=== PATIENT | female | born 1935 | race Two or more races ===

== ENCOUNTER → 2017-06-15 | Outpatient (CLI) | payer MEDICARE, MEDICAID ==
[2017-06-15 09:24] LABS: Basophils # (auto) 0 uL; Basophils % (auto) 0.5 % (0.0-2.0); CONDITION Y; Eosinophils # (auto) 0.1 uL; Eosinophils % (auto) 1.6 % (0.0-7.0); Hematocrit 36.6 % (36.0-46.0); Hemoglobin 12.4 g/dL (12.2-16.2); Lymphocytes # (auto) 1.2 uL; Lymphocytes % (auto) 24.6 % (10.0-50.0); Mean Corpuscular Hemoglobin 31.6 pg (28.0-32.0); Mean Platelet Volume 8.3 fL (7.4-10.4); Monocytes # (auto) 0.3 uL; Monocytes % (auto) 6.6 % (0.0-12.0); Neutrophils # (auto) 3.4 uL; Neutrophils % (auto) 66.7 % (37.0-80.0); Platelet Count (auto) 269 10^3/uL (140-450); Red Cell Distribution Width 14.8 % (11.6-16.0)
[2017-06-15 09:33] LABS: Urine Bilirubin Negative (Negative); Urine Blood Negative /uL (Negative); Urine Color Yellow (Yellow); Urine Glucose Normal (Normal); Urine Ketone Negative (Negative); Urine Nitrite Negative (Negative); Urine RBC <1 /hpf (0 - 4); Urine Squamous Epithelial Cell FEW /hpf (<5); Urine Urobilinogen Normal (Negative)
[2017-06-15 09:51] LABS: Albumin 3.4 g/dL (3.4-5.0); Bilirubin, Total 0.4 mg/dL (0.2-1.0); Calcium 8.3 mg/dL (8.5-10.1); Potassium 3.9 mmol/L (3.5-5.1); Total Protein 6.8 g/dL (6.4-8.2)
== END | disposition home or self-care (01) ==
LOC: LAB 08:18
PROVIDERS: ATTEND Internal Medicine
DX: Z00.00 Encounter for general adult medical examination without abnormal findings (principal); I10 Essential (primary) hypertension; E78.2 Mixed hyperlipidemia; D64.9 Anemia, unspecified; E55.9 Vitamin D deficiency, unspecified
CPT/HCPCS: 36415; 80053; 80061; 81001; 82043; 82306; 82607; 83036; 84443; 85025; 86592

== ENCOUNTER 2019-02-19 20:27 | Emergency (ER) | payer OTHER, MEDICAID ==
[2019-02-19 20:35] VITALS: BP 159/80
[2019-02-19 22:02] LABS: Basophils # (auto) 0 uL; Basophils % (auto) 0.6 % (0.0-2.0); Eosinophils # (auto) 0.3 uL; Eosinophils % (auto) 4.3 % (0.0-7.0); Hematocrit 40.2 % (36.0-46.0); Hemoglobin 13.1 g/dL (12.2-16.2); Lymphocytes # (auto) 0.5 uL; Lymphocytes % (auto) 7.4 % (10.0-50.0); Mean Corpuscular Hgb Conc. 32.7 g/dL (32.0-36.0); Mean Corpuscular Volume 94.8 fL (80.0-100.0); Monocytes # (auto) 0.4 uL; Neutrophils % (auto) 82.7 % (37.0-80.0); Platelet Count (auto) 171 10^3/uL (140-450); Red Blood Cells 4.24 10^6/uL (4.0-5.20); Red Cell Distribution Width 14.2 % (11.8-14.3); White Blood Cell 7.3 10^3/uL (4.4-10.8)
[2019-02-19 22:20] LABS: Chloride 96 mmol/L (98-107); Potassium 3.9 mmol/L (3.5-5.1); Sodium 128 mmol/L (136-145)
[2019-02-19 22:29] LABS: Alanine Aminotransferase 17 U/L (13-56); Albumin 3.6 g/dL (3.4-5.0); Alkaline Phosphatase 67 U/L (45-117); Anion Gap 10 (5-15); Aspartate Aminotransferase 14 U/L (15-37); BUN/Creatinine Ratio 18.3; Bilirubin, Total 0.3 mg/dL (0.2-1.0); Blood Urea Nitrogen 11 mg/dL (7-18); Calcium 8.7 mg/dL (8.5-10.1); Carbon Dioxide 22 mmol/L (21-32); GFR African American 122 mL/min; GFR Non-African American 101 mL/min; Glucose 179 mg/dL (74-106); Total Protein 7.3 g/dL (6.4-8.2)
== END 2019-02-20 05:17 | disposition left against medical advice (07) ==
LOC: ER 20:33
DX: R53.1 Weakness (principal); R11.0 Nausea; R05 Cough; Z53.21 Procedure and treatment not carried out due to patient leaving prior to being seen by health care provider
CPT/HCPCS: 36415; 71045; 80053; 83735; 84484; 85025; 93005

== ENCOUNTER → 2020-11-25 | Outpatient (CLI) | payer OTHER, MEDICAID ==
[2020-11-25 10:12] LABS: Basophils # (auto) 0.1 10 ^3/uL (0-0.2); Basophils % (auto) 1.4 % (0.0-2.0); Eosinophils # (auto) 0.1 10 ^3/uL (0-0.8); Eosinophils % (auto) 1.5 % (0.0-7.0); Hematocrit 38.3 % (36.0-46.0); Hemoglobin 12.7 g/dL (12.2-16.2); Lymphocytes # (auto) 1.5 10 ^3/uL (0.4-5.4); Lymphocytes % (auto) 30.8 % (10.0-50.0); Mean Corpuscular Hemoglobin 30.6 pg (28.0-32.0); Mean Corpuscular Hgb Conc. 33.2 g/dL (32.0-36.0); Mean Corpuscular Volume 92.1 fL (80.0-100.0); Monocytes # (auto) 0.3 10 ^3/uL (0-1.3); Monocytes % (auto) 6.8 % (0.0-12.0); Neutrophils # (auto) 2.9 10 ^3/uL (1.6-8.6); Neutrophils % (auto) 59.5 % (37.0-80.0); Nucleated Red Blood Cells % 0.1 %; Platelet Count (auto) 236 10^3/uL (140-450); Red Blood Cells 4.16 10^6/uL (4.0-5.20); Red Cell Distribution Width 15.2 % (11.8-14.3); White Blood Cell 4.9 10^3/uL (4.4-10.8)
[2020-11-25 10:48] LABS: Albumin 3.4 g/dL (3.4-5.0); Bilirubin, Total 0.4 mg/dL (0.2-1.0); Calcium 8.7 mg/dL (8.5-10.1); Total Protein 7.4 g/dL (6.4-8.2)
== END | disposition home or self-care (01) ==
LOC: LAB 09:37
PROVIDERS: ATTEND Physician Assistant
DX: I10 Essential (primary) hypertension (principal); E11.8 Type 2 diabetes mellitus with unspecified complications; E55.9 Vitamin D deficiency, unspecified; G30.1 Alzheimer's disease with late onset
CPT/HCPCS: 36415; 80053; 80061; 82043; 82306; 83036; 85025

== ENCOUNTER 2021-10-15 11:10 | Emergency (ER) | payer OTHER, MEDICAID ==
[~2021-10-15] VITALS: Ht 147.3 cm; Wt 40.4 kg
[2021-10-15 11:10] VITALS: BP 164/60
[2021-10-15] MEDS ORDERED: PROM1SOL4 PO ×2 (12:28→12:37)
[2021-10-15] MEDS ORDERED: LEVO500T31 PO ×2 (12:28→12:37)
[2021-10-15] MEDS ORDERED: cefTRIAXone SOD 1,000 MG VL IM ONE (12:30)
== END 2021-10-15 12:47 | disposition home or self-care (01) ==
LOC: ER 11:10
DX: J20.9 Acute bronchitis, unspecified (principal); J40 Bronchitis, not specified as acute or chronic; E11.9 Type 2 diabetes mellitus without complications; I10 Essential (primary) hypertension; Z90.710 Acquired absence of both cervix and uterus
CPT/HCPCS: 71045; 96372; 99283; J0696

== ENCOUNTER 2021-11-28 11:15 | Inpatient (IN) | payer OTHER, MEDICAID ==
[~2021-11-28] VITALS: Ht 147.3 cm; Wt 71.0 kg
[~2021-11-28 11:15] MED LIST: LEVO500T31 PO; PROM1SOL4 PO
[2021-11-28 14:10] LABS: Basophils # (auto) 0 10 ^3/uL (0-0.2); Basophils % (auto) 0.2 % (0.0-2.0); Eosinophils # (auto) 0 10 ^3/uL (0-0.8); Eosinophils % (auto) 0.3 % (0.0-7.0); Hematocrit 35.2 % (36.0-46.0); Hemoglobin 11.3 g/dL (12.2-16.2); Lymphocytes # (auto) 0.6 10 ^3/uL (0.4-5.4); Lymphocytes % (auto) 3.8 % (10.0-50.0); Mean Corpuscular Hgb Conc. 32.2 g/dL (32.0-36.0); Monocytes # (auto) 0.7 10 ^3/uL (0-1.3); Monocytes % (auto) 4.4 % (0.0-12.0); Neutrophils # (auto) 13.7 10 ^3/uL (1.6-8.6); Neutrophils % (auto) 91.3 % (37.0-80.0); Red Blood Cells 4.04 10^6/uL (4.0-5.20)
[2021-11-28] MEDS ORDERED: AZITHROMYCIN 500MG/ 250ML 250 ML IV ONE (14:15)
[2021-11-28] MEDS ORDERED: cefTRIAXone 1GM/50ML D5W 50 ML IV ONE (14:15)
[2021-11-28 14:24] LABS: Albumin 2.5 g/dL (3.4-5.0); Calcium 9.1 mg/dL (8.5-10.1); Potassium 4.2 mmol/L (3.5-5.1)
[2021-11-28 14:27] LABS: BUN/Creatinine Ratio 35.3; Bilirubin, Total 0.5 mg/dL (0.2-1.0)
[2021-11-28] MEDS ORDERED: CLINDAMYCIN 600 MG/4 ML VL IM ONE (14:30)
[2021-11-28] MEDS ORDERED: CLINDAMYCIN 300MG IV 50 ML IV ONE (18:30)
[2021-11-28] MEDS ORDERED: ACETAMINOPHEN 500 MG TAB PO PRN (19:30)
[2021-11-28] MEDS: SODIUM CHLORIDE 0.9% 1,000 ML IV SCH (19:30)
[2021-11-28] MEDS ORDERED: NITROGLYCERIN 0.4 MG SL TAB SL PRN (19:30)
[2021-11-28] MEDS ORDERED: HYDROcodone-ACET 5/325MG TAB PO PRN (19:30)
[2021-11-28] MEDS ORDERED: MORPHINE SULFATE INJECTION 2 MG/ML SYRG IV PRN ×2 (19:30)
[2021-11-28] MEDS ORDERED: ONDANSETRON HCL 4 MG/2 ML VIAL IV PRN (19:30)
[2021-11-28] MEDS ORDERED: DEXTROSE (50%) 50ML SYRG IV PRN (20:00)
[2021-11-28 20:44] LABS: Urine Bacteria NONE SEEN /hpf (None Seen); Urine Blood TRACE /uL (Negative); Urine Specific Gravity 1.018 (1.001-1.035); Urine WBC <1 /hpf (0 - 5)
[2021-11-28] MEDS: InsuLIN REG 1unit/0.01ml Soln (100units/ml) SC SCH (22:13)
[2021-11-28] MEDS: ACCU-CHEK COMFORT CURVE STRIP VI SCH (22:13)
[2021-11-29 04:00] VITALS: BP 169/74
[2021-11-29] MEDS: CLINDAMYCIN 300MG IV 50 ML IV SCH ×3 (05:31→21:39)
[2021-11-29] MEDS: SODIUM CHLORIDE 0.9% 1,000 ML IV SCH ×2 (05:31→15:23)
[2021-11-29] MEDS: ACCU-CHEK COMFORT CURVE STRIP VI SCH ×3 (05:40→21:40)
[2021-11-29] MEDS: InsuLIN REG 1unit/0.01ml Soln (100units/ml) SC SCH ×3 (05:40→21:40)
[2021-11-29 05:45] LABS: Basophils # (auto) 0 10 ^3/uL (0-0.2); Basophils % (auto) 0.2 % (0.0-2.0); Eosinophils # (auto) 0 10 ^3/uL (0-0.8); Eosinophils % (auto) 0.3 % (0.0-7.0); Hematocrit 32.7 % (36.0-46.0); Hemoglobin 10.8 g/dL (12.2-16.2); Lymphocytes # (auto) 0.5 10 ^3/uL (0.4-5.4); Lymphocytes % (auto) 3.5 % (10.0-50.0); Mean Corpuscular Hemoglobin 28.5 pg (28.0-32.0); Mean Corpuscular Volume 86.6 fL (80.0-100.0); Monocytes # (auto) 0.6 10 ^3/uL (0-1.3); Monocytes % (auto) 4.5 % (0.0-12.0); Neutrophils # (auto) 11.9 10 ^3/uL (1.6-8.6); Neutrophils % (auto) 91.5 % (37.0-80.0); Red Blood Cells 3.78 10^6/uL (4.0-5.20); Red Cell Distribution Width 16.5 % (11.8-14.3)
[2021-11-29 05:59] LABS: Calcium 8.3 mg/dL (8.5-10.1); Potassium 3.5 mmol/L (3.5-5.1)
[2021-11-29 06:02] LABS: Albumin 2.3 g/dL (3.4-5.0)
[2021-11-29 06:04] LABS: Bilirubin, Total 0.5 mg/dL (0.2-1.0); Total Protein 5.6 g/dL (6.4-8.2)
[2021-11-29 09:00] VITALS: BP 163/70
[2021-11-29] MEDS: cefTRIAXone 1GM/50ML D5W 50 ML IV SCH (10:00)
[2021-11-29 17:00] VITALS: BP 148/72
[2021-11-29 22:00] VITALS: BP 147/74
[2021-11-30] MEDS: SODIUM CHLORIDE 0.9% 1,000 ML IV SCH ×2 (01:30→11:30)
[2021-11-30 05:00] VITALS: BP 142/71
[2021-11-30] MEDS: CLINDAMYCIN 300MG IV 50 ML IV SCH ×3 (06:28→21:28)
[2021-11-30] MEDS: ACCU-CHEK COMFORT CURVE STRIP VI SCH ×4 (06:34→21:28)
[2021-11-30] MEDS: InsuLIN REG 1unit/0.01ml Soln (100units/ml) SC SCH ×4 (06:35→21:28)
[2021-11-30 09:00] VITALS: BP 112/61
[2021-11-30] MEDS: cefTRIAXone 1GM/50ML D5W 50 ML IV SCH (09:36)
[2021-11-30 13:00] VITALS: BP 121/61
[2021-11-30 17:00] VITALS: BP 135/87
[2021-11-30 20:00] VITALS: BP 194/85
[2021-11-30] MEDS ORDERED: hydrALAZINE HCL 20 MG/ML VL ONE (22:57)
[2021-11-30] MEDS: hydrALAZINE HCL 20 MG/ML VL IV PRN (23:01)
[2021-12-01 05:00] VITALS: BP 149/70
[2021-12-01] MEDS: CLINDAMYCIN 300MG IV 50 ML IV SCH ×3 (05:34→22:54)
[2021-12-01 05:46] LABS: Basophils # (auto) 0 10 ^3/uL (0-0.2); Basophils % (auto) 0.2 % (0.0-2.0); Eosinophils # (auto) 0 10 ^3/uL (0-0.8); Hematocrit 28.6 % (36.0-46.0); Hemoglobin 9.4 g/dL (12.2-16.2); Lymphocytes # (auto) 0.6 10 ^3/uL (0.4-5.4); Lymphocytes % (auto) 3.1 % (10.0-50.0); Mean Corpuscular Hemoglobin 28.2 pg (28.0-32.0); Mean Corpuscular Hgb Conc. 32.9 g/dL (32.0-36.0); Mean Corpuscular Volume 85.5 fL (80.0-100.0); Monocytes # (auto) 0.7 10 ^3/uL (0-1.3); Monocytes % (auto) 3.9 % (0.0-12.0); Neutrophils # (auto) 16.6 10 ^3/uL (1.6-8.6); Neutrophils % (auto) 92.8 % (37.0-80.0); Nucleated Red Blood Cells % 0.1 %; Red Blood Cells 3.34 10^6/uL (4.0-5.20); Red Cell Distribution Width 16.6 % (11.8-14.3); White Blood Cell 17.9 10^3/uL (4.4-10.8)
[2021-12-01 05:54] LABS: BUN/Creatinine Ratio 42.1; Calcium 7.4 mg/dL (8.5-10.1); Magnesium 1.7 mg/dL (1.6-2.6)
[2021-12-01 06:37] LABS: Potassium 2.4 mmol/L (3.5-5.1)
[2021-12-01] MEDS: InsuLIN REG 1unit/0.01ml Soln (100units/ml) SC SCH ×4 (06:54→22:55)
[2021-12-01] MEDS: ACCU-CHEK COMFORT CURVE STRIP VI SCH ×4 (06:54→22:53)
[2021-12-01] MEDS ORDERED: POTASSIUM CHL 20 Meq TABLET PO ONE ×2 (08:00→10:00)
[2021-12-01] MEDS: cefTRIAXone 1GM/50ML D5W 50 ML IV SCH (08:35)
[2021-12-01 09:00] VITALS: BP 133/62
[2021-12-01] MEDS ORDERED: MAGNESIUM OXIDE 400 MG TAB PO ONE (11:15)
[2021-12-01] MEDS ORDERED: POTASSIUM CHLORIDE 20 MEQ, LIDOCAINE 1% (LOCAL ANESTH.) 2 ML in SODIUM CHL 0.9% 100 ML IV ONE (11:15)
[2021-12-01] MEDS ORDERED: POTASSIUM CHL 20MEQ/50ML 50 ML IV ONE (12:45)
[2021-12-01] MEDS ORDERED: CYANOCOBALAMIN (B-12) 1000 MCG/1 ML VIAL SUBCUT ONE (18:30)
[2021-12-02] MEDS: ACCU-CHEK COMFORT CURVE STRIP VI SCH ×4 (06:03→22:08)
[2021-12-02] MEDS: CLINDAMYCIN 300MG IV 50 ML IV SCH ×2 (06:03→14:00)
[2021-12-02] MEDS: InsuLIN REG 1unit/0.01ml Soln (100units/ml) SC SCH ×4 (06:04→22:07)
[2021-12-02 06:37] LABS: BUN/Creatinine Ratio 26.9; Calcium 7.3 mg/dL (8.5-10.1); Magnesium 1.3 mg/dL (1.6-2.6); Potassium 3.6 mmol/L (3.5-5.1)
[2021-12-02 06:49] LABS: Basophils # (auto) 0 10 ^3/uL (0-0.2); Basophils % (auto) 0.1 % (0.0-2.0); Eosinophils # (auto) 0.1 10 ^3/uL (0-0.8); Eosinophils % (auto) 0.6 % (0.0-7.0); Hematocrit 26.3 % (36.0-46.0); Hemoglobin 8.8 g/dL (12.2-16.2); Lymphocytes # (auto) 0.8 10 ^3/uL (0.4-5.4); Lymphocytes % (auto) 5.4 % (10.0-50.0); Mean Corpuscular Hemoglobin 28.6 pg (28.0-32.0); Mean Corpuscular Hgb Conc. 33.4 g/dL (32.0-36.0); Mean Corpuscular Volume 85.5 fL (80.0-100.0); Monocytes # (auto) 0.6 10 ^3/uL (0-1.3); Monocytes % (auto) 4.4 % (0.0-12.0); Neutrophils # (auto) 12.8 10 ^3/uL (1.6-8.6); Neutrophils % (auto) 89.5 % (37.0-80.0); Red Blood Cells 3.07 10^6/uL (4.0-5.20); Red Cell Distribution Width 16.3 % (11.8-14.3); White Blood Cell 14.3 10^3/uL (4.4-10.8)
[2021-12-02 09:00] VITALS: BP 145/74
[2021-12-02] MEDS: cefTRIAXone 1GM/50ML D5W 50 ML IV SCH (09:00)
[2021-12-02] MEDS: CYANOCOBALAMIN (B-12) 1000 MCG/1 ML VIAL IM SCH (09:49)
[2021-12-02 13:00] VITALS: BP 147/70
[2021-12-02 17:00] VITALS: BP 140/72
[2021-12-02 22:00] VITALS: BP 157/80
[2021-12-02] MEDS: LINEZOLID 600MG TABLET PO SCH (22:05)
[2021-12-03 05:30] VITALS: BP 150/86
[2021-12-03 06:05] LABS: Basophils # (auto) 0 10 ^3/uL (0-0.2); Basophils % (auto) 0.1 % (0.0-2.0); Eosinophils # (auto) 0.1 10 ^3/uL (0-0.8); Eosinophils % (auto) 0.5 % (0.0-7.0); Hematocrit 29.2 % (36.0-46.0); Hemoglobin 9.7 g/dL (12.2-16.2); Lymphocytes # (auto) 0.6 10 ^3/uL (0.4-5.4); Lymphocytes % (auto) 4.3 % (10.0-50.0); Mean Corpuscular Hemoglobin 28.3 pg (28.0-32.0); Mean Corpuscular Hgb Conc. 33.2 g/dL (32.0-36.0); Mean Corpuscular Volume 85.4 fL (80.0-100.0); Monocytes # (auto) 0.5 10 ^3/uL (0-1.3); Monocytes % (auto) 3.7 % (0.0-12.0); Neutrophils # (auto) 12.9 10 ^3/uL (1.6-8.6); Neutrophils % (auto) 91.4 % (37.0-80.0); Red Blood Cells 3.42 10^6/uL (4.0-5.20); Red Cell Distribution Width 16.5 % (11.8-14.3); White Blood Cell 14.1 10^3/uL (4.4-10.8)
[2021-12-03 06:40] LABS: BUN/Creatinine Ratio 19.2; Calcium 7.7 mg/dL (8.5-10.1)
[2021-12-03] MEDS: InsuLIN REG 1unit/0.01ml Soln (100units/ml) SC SCH ×4 (07:03→22:25)
[2021-12-03] MEDS: ACCU-CHEK COMFORT CURVE STRIP VI SCH ×4 (07:04→22:25)
[2021-12-03 08:25] VITALS: BP 163/86
[2021-12-03] MEDS: hydrALAZINE HCL 20 MG/ML VL IV PRN (08:32)
[2021-12-03] MEDS: LINEZOLID 600MG TABLET PO SCH ×2 (10:00→22:24)
[2021-12-03] MEDS: CYANOCOBALAMIN (B-12) 1000 MCG/1 ML VIAL IM SCH (10:00)
[2021-12-03 13:05] VITALS: BP 104/56
[2021-12-03] MEDS ORDERED: ceFAZolin 1GM VL ONE (13:28)
[2021-12-03] MEDS ORDERED: ceFAZolin 1GM/50ML 100 ML IV ONE (13:29)
[2021-12-03] MEDS ORDERED: ROCURONIUM 10MG/ML 10ML VIAL IV ONE (13:31)
[2021-12-03] MEDS ORDERED: fentaNYL CITRATE 100 MCG/2 ML VL ONE (13:31)
[2021-12-03] MEDS ORDERED: MIDAZOLAM HCL 2MG/2ML 2ml VIAL (1mg/ml) ONE (13:31)
[2021-12-03] MEDS ORDERED: ONDANSETRON HCL 4 MG/2 ML VIAL ONE (13:38)
[2021-12-03] MEDS ORDERED: LIDOCAINE 2% (LOCAL ANESTH.) PF 5ml SDV ONE (13:38)
[2021-12-03] MEDS ORDERED: HYDROmorphone HCL 2 MG/ML VL IV PRN (15:15)
[2021-12-03] MEDS ORDERED: ONDANSETRON HCL 4 MG/2 ML VIAL IV PRN (15:15)
[2021-12-03 17:45] VITALS: BP 137/64
[2021-12-03 18:10] LABS: INR 1.25 (0.9-1.15); Partial Thromboplastin Time 31.6 sec (23.6-33.0)
[2021-12-03 20:00] VITALS: BP 106/43
[2021-12-04 03:00] VITALS: BP 116/48
[2021-12-04] MEDS: ACCU-CHEK COMFORT CURVE STRIP VI SCH ×4 (06:57→22:31)
[2021-12-04] MEDS: InsuLIN REG 1unit/0.01ml Soln (100units/ml) SC SCH ×4 (06:57→22:30)
[2021-12-04 08:23] LABS: Basophils # (auto) 0 10 ^3/uL (0-0.2); Basophils % (auto) 0.3 % (0.0-2.0); Eosinophils # (auto) 0 10 ^3/uL (0-0.8); Eosinophils % (auto) 0.3 % (0.0-7.0); Hematocrit 27.8 % (36.0-46.0); Hemoglobin 9.3 g/dL (12.2-16.2); Lymphocytes # (auto) 0.9 10 ^3/uL (0.4-5.4); Mean Corpuscular Hemoglobin 28.5 pg (28.0-32.0); Mean Corpuscular Hgb Conc. 33.3 g/dL (32.0-36.0); Mean Corpuscular Volume 85.4 fL (80.0-100.0); Monocytes # (auto) 0.6 10 ^3/uL (0-1.3); Monocytes % (auto) 4.5 % (0.0-12.0); Neutrophils # (auto) 11.6 10 ^3/uL (1.6-8.6); Neutrophils % (auto) 87.9 % (37.0-80.0); Potassium 3.3 mmol/L (3.5-5.1); Red Blood Cells 3.26 10^6/uL (4.0-5.20); Red Cell Distribution Width 16.5 % (11.8-14.3); White Blood Cell 13.2 10^3/uL (4.4-10.8)
[2021-12-04 08:40] LABS: BUN/Creatinine Ratio 26.1; Calcium 7.8 mg/dL (8.5-10.1)
[2021-12-04] MEDS: LINEZOLID 600MG TABLET PO SCH ×2 (09:39→22:28)
[2021-12-04] MEDS: CYANOCOBALAMIN (B-12) 1000 MCG/1 ML VIAL IM SCH (09:39)
[2021-12-04 10:20] VITALS: BP 154/66
[2021-12-04] MEDS ORDERED: POTASSIUM EFFERVESENT TAB 25 MEQ PO ONE (12:00)
[2021-12-04] MEDS ORDERED: CEFTRIAXONE SODIUM 2 GM in D5W 5% 50 ML IV ONE (12:15)
[2021-12-04] MEDS ORDERED: cefTRIAXone 1GM/50ML D5W 50 ML IV ONE (13:00)
[2021-12-04 14:41] VITALS: BP 152/69
[2021-12-04 17:18] VITALS: BP 149/74
[2021-12-04 20:00] VITALS: BP 140/68
[2021-12-04 22:00] VITALS: BP 140/68
[2021-12-05] VITALS (7 sets, daily range): BP systolic 117–165; BP diastolic 58–84
[2021-12-05 05:34] LABS: Basophils # (auto) 0 10 ^3/uL (0-0.2); Eosinophils # (auto) 0 10 ^3/uL (0-0.8); Eosinophils % (auto) 0.5 % (0.0-7.0); Hemoglobin 8.8 g/dL (12.2-16.2); Lymphocytes # (auto) 0.6 10 ^3/uL (0.4-5.4); Mean Corpuscular Hemoglobin 28.6 pg (28.0-32.0); Mean Corpuscular Hgb Conc. 33.7 g/dL (32.0-36.0); Mean Corpuscular Volume 85.1 fL (80.0-100.0); Monocytes # (auto) 0.5 10 ^3/uL (0-1.3); Monocytes % (auto) 5.7 % (0.0-12.0); Neutrophils # (auto) 7.9 10 ^3/uL (1.6-8.6); Neutrophils % (auto) 86.8 % (37.0-80.0); Nucleated Red Blood Cells % 0.1 %; Red Blood Cells 3.06 10^6/uL (4.0-5.20); Red Cell Distribution Width 16.5 % (11.8-14.3); White Blood Cell 9.1 10^3/uL (4.4-10.8)
[2021-12-05 05:51] LABS: Potassium 3.7 mmol/L (3.5-5.1)
[2021-12-05 05:55] LABS: BUN/Creatinine Ratio 17.1; Magnesium 2.6 mg/dL (1.6-2.6)
[2021-12-05] MEDS: ACCU-CHEK COMFORT CURVE STRIP VI SCH ×4 (07:00→23:41)
[2021-12-05] MEDS: InsuLIN REG 1unit/0.01ml Soln (100units/ml) SC SCH ×4 (07:00→23:48)
[2021-12-05] MEDS: cefTRIAXone 1GM/50ML D5W 50 ML IV SCH (09:00)
[2021-12-05] MEDS: CYANOCOBALAMIN (B-12) 1000 MCG/1 ML VIAL IM SCH (10:00)
[2021-12-05] MEDS: LINEZOLID 600MG TABLET PO SCH ×2 (10:00→23:40)
[2021-12-05] MEDS ORDERED: POTASSIUM PHOSPHATE 26.4 MEQ in SODIUM CHL 0.9% 100 ML IV ONE (12:45)
[2021-12-06 05:00] VITALS: BP 162/63
[2021-12-06] MEDS: ACCU-CHEK COMFORT CURVE STRIP VI SCH ×4 (07:00→22:43)
[2021-12-06] MEDS: InsuLIN REG 1unit/0.01ml Soln (100units/ml) SC SCH ×4 (07:00→22:43)
[2021-12-06 09:00] VITALS: BP 181/76
[2021-12-06] MEDS: cefTRIAXone 1GM/50ML D5W 50 ML IV SCH (09:11)
[2021-12-06] MEDS: CYANOCOBALAMIN (B-12) 1000 MCG/1 ML VIAL IM SCH (09:12)
[2021-12-06] MEDS: LINEZOLID 600MG TABLET PO SCH ×2 (09:12→22:42)
[2021-12-06] MEDS: hydrALAZINE HCL 20 MG/ML VL IV PRN (09:37)
[2021-12-06 10:44] VITALS: BP 149/59
[2021-12-06] MEDS ORDERED: METOPROLOL TARTRATE 25 MG TAB PO ONE (12:45)
[2021-12-06 14:40] VITALS: BP 146/78
[2021-12-06 16:40] VITALS: BP 128/67
[2021-12-06] MEDS: METOPROLOL TARTRATE 25 MG TAB PO SCH (22:42)
[2021-12-07] MEDS: InsuLIN REG 1unit/0.01ml Soln (100units/ml) SC SCH ×2 (06:23→12:53)
[2021-12-07] MEDS: ACCU-CHEK COMFORT CURVE STRIP VI SCH ×2 (06:24→12:52)
[2021-12-07 09:00] VITALS: BP 147/76
[2021-12-07] MEDS: CYANOCOBALAMIN (B-12) 1000 MCG/1 ML VIAL IM SCH (09:25)
[2021-12-07] MEDS: cefTRIAXone 1GM/50ML D5W 50 ML IV SCH (09:25)
[2021-12-07] MEDS: LINEZOLID 600MG TABLET PO SCH (09:26)
[2021-12-07] MEDS: METOPROLOL TARTRATE 25 MG TAB PO SCH (09:26)
[2021-12-07] MEDS ORDERED: LEVO500T31 PO (11:20)
[2021-12-07] MEDS ORDERED: CYAN1TAB14 PO (11:20)
[2021-12-07] MEDS ORDERED: LINE1TAB5 PO (11:20)
[2021-12-07 13:00] VITALS: BP 141/66
[2021-12-07 13:51] VITALS: BP 130/77
== END 2021-12-07 17:12 | disposition home health service (06) | DRG 853 ==
LOC: ER 11:15 → TELE 19:25 → TELE-WESTW 11-29 03:09
PROVIDERS: ADMIT Nurse Practitioner Acute Care; ATTEND Internal Medicine
PROC: 0J9700Z Drainage of Back Subcutaneous Tissue and Fascia with Drainage Device, Open Approach (ICD-10-PCS; 2021-12-03)
PROC: 0JB70ZZ Excision of Back Subcutaneous Tissue and Fascia, Open Approach (ICD-10-PCS; principal; 2021-12-03 13:33)
DX: A41.9 Sepsis, unspecified organism (principal); E43 Unspecified severe protein-calorie malnutrition; L02.212 Cutaneous abscess of back [any part, except buttock and flank]; L03.312 Cellulitis of back [any part except buttock and flank]; L89.150 Pressure ulcer of sacral region, unstageable; I10 Essential (primary) hypertension; Z20.822 Contact with and (suspected) exposure to COVID-19; E88.09 Other disorders of plasma-protein metabolism, not elsewhere classified; F03.90 Unspecified dementia, unspecified severity, without behavioral disturbance, psychotic disturbance, mood disturbance, and anxiety; E11.40 Type 2 diabetes mellitus with diabetic neuropathy, unspecified; D64.9 Anemia, unspecified; S31.000A Unspecified open wound of lower back and pelvis without penetration into retroperitoneum, initial encounter; E11.21 Type 2 diabetes mellitus with diabetic nephropathy; Z68.32 Body mass index [BMI] 32.0-32.9, adult; Z90.710 Acquired absence of both cervix and uterus; Z98.51 Tubal ligation status; Y93.89 Activity, other specified; Y92.89 Other specified places as the place of occurrence of the external cause; Y99.8 Other external cause status
CPT/HCPCS: 36415; 71045; 74176; 80048; 80053; 81001; 82607; 82962; 83605; 83735; 84100; 84132; 84443; 85025; 85610; 85730; 87040; 87070; 87075; 87077; 87186; 87205; 87426; 96365; 96367; A4565; G0378; J0690; J0696; J1815; J2001; J2250; J2405; J3490; J7060

== ENCOUNTER 2021-12-15 21:20 | Emergency (ER) | payer OTHER, MEDICAID ==
[~2021-12-15] VITALS: Ht 147.3 cm; Wt 40.4 kg
[~2021-12-15 21:20] MED LIST changes: +CYAN1TAB14 PO; +LINE1TAB5 PO
[2021-12-15] MEDS ORDERED: ONDANSETRON HCL 4 MG/2 ML VIAL IV ONE (22:00)
[2021-12-15] MEDS ORDERED: IOHEXOL 350 MG/ML 100ML IJ ONE (22:00)
[2021-12-15] MEDS ORDERED: HYDROmorphone HCL 2 MG/ML VL IV ONE (22:00)
[2021-12-15] MEDS ORDERED: SODIUM CHLORIDE 0.9% 500 ML IV ONE (22:00)
[2021-12-16 00:36] LABS: Basophils # (auto) 0 10 ^3/uL (0-0.2); Basophils % (auto) 0.3 % (0.0-2.0); Eosinophils # (auto) 0 10 ^3/uL (0-0.8); Eosinophils % (auto) 0.1 % (0.0-7.0); Hematocrit 26.4 % (36.0-46.0); Hemoglobin 8.6 g/dL (12.2-16.2); Lymphocytes # (auto) 0.8 10 ^3/uL (0.4-5.4); Mean Corpuscular Hemoglobin 28.1 pg (28.0-32.0); Mean Corpuscular Hgb Conc. 32.7 g/dL (32.0-36.0); Mean Corpuscular Volume 85.8 fL (80.0-100.0); Monocytes # (auto) 0.1 10 ^3/uL (0-1.3); Neutrophils # (auto) 10.7 10 ^3/uL (1.6-8.6); Neutrophils % (auto) 91.6 % (37.0-80.0); Red Blood Cells 3.08 10^6/uL (4.0-5.20); Red Cell Distribution Width 16.7 % (11.8-14.3); White Blood Cell 11.7 10^3/uL (4.4-10.8)
[2021-12-16] MEDS ORDERED: VANCOMYCIN 1GM/250ML 250 ML IV ONE (00:45)
[2021-12-16] MEDS ORDERED: PIPERACILLIN-TAZOB 3.375GM 100 ML IV ONE (00:45)
[2021-12-16 01:23] LABS: Albumin 2.6 g/dL (3.4-5.0); BUN/Creatinine Ratio 26.9
[2021-12-16 01:26] LABS: Bilirubin, Total 0.3 mg/dL (0.2-1.0); Potassium 2.9 mmol/L (3.5-5.1); Total Protein 6.4 g/dL (6.4-8.2)
[2021-12-16] MEDS ORDERED: ONDANSETRON HCL 4 MG/2 ML VIAL IV PRN (02:45)
[2021-12-16] MEDS ORDERED: ACETAMINOPHEN 325 MG TAB PO PRN (02:45)
[2021-12-16] MEDS ORDERED: HYDROcodone-ACET 5/325MG TAB PO PRN (02:45)
[2021-12-16] MEDS ORDERED: DEXTROSE (50%) 50ML SYRG IV PRN (02:45)
[2021-12-16] MEDS: POTASSIUM CHL 10MEQ/50ML 50 ML IV SCH ×4 (03:40→10:19)
[2021-12-16] MEDS: ACCU-CHEK COMFORT CURVE STRIP VI SCH ×4 (06:31→22:27)
[2021-12-16] MEDS: InsuLIN REG 1unit/0.01ml Soln (100units/ml) SC SCH ×4 (06:34→22:00)
[2021-12-16] MEDS ORDERED: hydrALAZINE HCL 20 MG/ML VL IV PRN (06:45)
[2021-12-16] MEDS ORDERED: ENOXAPARIN SOD 40 MG/0.4 ML SYRINGE SC SCH (10:00)
[2021-12-16] MEDS ORDERED: POTASSIUM CHL 10MEQ/50ML 50 ML IV ONE (10:05)
[2021-12-16 10:12] LABS: Albumin 2.5 g/dL (3.4-5.0); Calcium 8.1 mg/dL (8.5-10.1)
[2021-12-16] MEDS: LINEZOLID 600MG/300ML 300 ML IV SCH ×2 (10:20→22:28)
[2021-12-16] MEDS: LOSARTAN POTASSIUM 25 MG TAB PO SCH (10:20)
[2021-12-16] MEDS: ENOXAPARIN SOD 30 MG/0.3 ML SYRINGE SC SCH (10:20)
[2021-12-16 10:23] LABS: Lactic Acid w/Reflex 4.2 mmol/L (0.4-2.0)
[2021-12-16 10:27] LABS: BUN/Creatinine Ratio 23.3; Bilirubin, Total 0.2 mg/dL (0.2-1.0); Total Protein 5.9 g/dL (6.4-8.2)
[2021-12-16 19:15] LABS: Urine Bacteria NONE SEEN /hpf (None Seen); Urine Blood Negative /uL (Negative); Urine Specific Gravity 1.024 (1.001-1.035); Urine WBC 2 /hpf (0 - 5)
[2021-12-17 05:00] VITALS: BP 156/63
[2021-12-17] MEDS: InsuLIN REG 1unit/0.01ml Soln (100units/ml) SC SCH ×2 (06:15→12:02)
[2021-12-17] MEDS: ACCU-CHEK COMFORT CURVE STRIP VI SCH ×2 (06:16→12:02)
[2021-12-17 08:54] LABS: Calcium 7.6 mg/dL (8.5-10.1); Magnesium 2.2 mg/dL (1.6-2.6)
[2021-12-17 08:58] LABS: BUN/Creatinine Ratio 19.2
[2021-12-17 09:00] LABS: Basophils # (auto) 0 10 ^3/uL (0-0.2); Basophils % (auto) 0.6 % (0.0-2.0); Eosinophils # (auto) 0.1 10 ^3/uL (0-0.8); Eosinophils % (auto) 1.3 % (0.0-7.0); Hematocrit 29.8 % (36.0-46.0); Hemoglobin 9.6 g/dL (12.2-16.2); Lymphocytes % (auto) 17.3 % (10.0-50.0); Mean Corpuscular Hemoglobin 27.2 pg (28.0-32.0); Mean Corpuscular Hgb Conc. 32.2 g/dL (32.0-36.0); Mean Corpuscular Volume 84.6 fL (80.0-100.0); Monocytes # (auto) 0.2 10 ^3/uL (0-1.3); Monocytes % (auto) 3.9 % (0.0-12.0); Neutrophils # (auto) 4.5 10 ^3/uL (1.6-8.6); Neutrophils % (auto) 76.9 % (37.0-80.0); Nucleated Red Blood Cells % 0.1 %; Red Blood Cells 3.52 10^6/uL (4.0-5.20); Red Cell Distribution Width 16.9 % (11.8-14.3); White Blood Cell 5.8 10^3/uL (4.4-10.8)
[2021-12-17 09:05] LABS: Potassium 2.6 mmol/L (3.5-5.1)
[2021-12-17] MEDS: LOSARTAN POTASSIUM 25 MG TAB PO SCH (10:00)
[2021-12-17] MEDS ORDERED: POTASSIUM EFFERVESENT TAB 25 MEQ PO ONE (10:00)
[2021-12-17] MEDS: LINEZOLID 600MG/300ML 300 ML IV SCH (10:06)
[2021-12-17] MEDS: ENOXAPARIN SOD 30 MG/0.3 ML SYRINGE SC SCH (10:07)
[2021-12-17] MEDS: POTASSIUM CHL 10MEQ/50ML 50 ML IV SCH ×2 (10:25→11:55)
[2021-12-17 16:38] VITALS: BP 104/50
== END 2021-12-17 18:01 | disposition home or self-care (01) ==
LOC: ER 21:21 → UNDOADMIN 12-16 02:43 → OVERFLOW 12-16 02:43 → ER 12-17 18:01
DX: T85.618A Breakdown (mechanical) of other specified internal prosthetic devices, implants and grafts, initial encounter (principal); L89.159 Pressure ulcer of sacral region, unspecified stage; E11.9 Type 2 diabetes mellitus without complications; I10 Essential (primary) hypertension; Z90.710 Acquired absence of both cervix and uterus; Z98.51 Tubal ligation status; Y92.89 Other specified places as the place of occurrence of the external cause; Z20.822 Contact with and (suspected) exposure to COVID-19
CPT/HCPCS: 36415; 71045; 74177; 80048; 80053; 81001; 82962; 83605; 83735; 85025; 85652; 87077; 87205; 87426; 93005; 96361; 96365; 96366; 96367; 96372; 96375; 99285; J0360; J1650; J1815; J2020; J2543; J3370; J3480; Q9967; G0378